=== PATIENT | female | born 1975 | race African-American/Black ===

== ENCOUNTER 2017-02-18 11:18 | Day surgery (SDC) | payer OTHER ==
[2017-02-17 17:17] VITALS: BMI 24.4
[2017-02-18] MEDS ORDERED: LIDOCAINE 1%/EPI 1:100000 (20 ML MULTI DOSE VIAL) ONE (13:16)
[2017-02-18] MEDS ORDERED: MIDAZOLAM HCL 2 MG/2 ML SINGLE DOSE VIAL ONE (13:29)
[2017-02-18] MEDS ORDERED: PROPOFOL 20 ML ONE (13:29)
--- NOTE | 2017-02-18 13:34 | OP ---
Operative Note - Note: Operative Date: 02/18/17 Pre-Operative Diagnosis: Hypermastia Operation: Bilateral breast reduction Findings: Large pendulous breasts Implants: none Post-Operative Diagnosis: Same as Pre-op Surgeon: Moisés Acevedo Cloth Beamer: Ronel Jara Anesthesia: MAC Specimens Removed: Breast tissue Estimated Blood Loss (mls): 100 Drains & Tubes with Location: none Operative Report Dictated: Yes
[2017-02-18] MEDS ORDERED: ceFAZolin SODIUM 1 GM VIAL IVPB ONE (13:45)
[2017-02-18] MEDS ORDERED: SEVOFLURANE 250 ML BTL ONE (13:46)
[2017-02-18] MEDS ORDERED: ceFAZolin SODIUM 1 GM VIAL ONE (13:48)
[2017-02-18] MEDS ORDERED: LIDOCAINE 1%/EPI 1:100000 (50 ML MULTI DOSE VIAL) INF ONE (13:59)
[2017-02-18] MEDS ORDERED: DEXAMETHASONE SOD PHOSPHATE 4 MG/1 ML VIAL ONE (14:15)
[2017-02-18] MEDS ORDERED: oxyCODONE HCL 5 MG TABLET PO PRN (15:36)
[2017-02-18] MEDS ORDERED: ONDANSETRON 4 MG/2 ML VIAL IVPUSH PRN (15:36)
[2017-02-18] MEDS ORDERED: ACETAMINOPHEN 1000 MG/100 ML VIAL (NON FORMULARY) IVPB PRN (15:38)
[2017-02-18] MEDS ORDERED: LACTATED RINGERS SOLUTION 1,000 ML IV SCH (15:45)
--- NOTE | 2017-02-18 17:50 | OP ---
DATE OF OPERATION: 02/18/2017 SURGEON: Charles Acevedo MD GEOMAGNETICIAN SURGEON: HETAL Tejeda PREOPERATIVE DIAGNOSIS: Symptomatic macromastia. POSTOPERATIVE DIAGNOSIS: Symptomatic macromastia. OPERATIVE PROCEDURE: Bilateral reduction mammoplasty. OPERATIVE INDICATION: The patient is a young woman who complains of symptomatic macromastia with inability to do her daily activities. The risks and benefits of surgical versus nonsurgical alternatives as well as the material complications, including the scars which are related to Ortiz pattern reduction mammoplasty were described to the patient on multiple occasions preoperatively. She was marked today in the holding area preoperatively, with outline of the incisions, the pattern, and the discussion of the procedure. All questions were asked and answered. OPERATIVE PROCEDURE IN DETAIL: The patient was taken to the operating room, and after induction of general anesthesia in the supine position, both arms were extended and padded and Venodyne boots were placed. The entire chest wall was prepped with ChloraPrep solution over its entire extent and then sterile drapes were placed in the usual fashion. After timeout and intravenous antibiotics which were given, attention was turned to the markings. These were confirmed and just redrawn. At this point, 1% local lidocaine anesthesia was injected into the proposed incision lines for hemostasis, and a number 42 nipple-areolar cutter was circumscribed around the right nipple-areolar complex. The nipple complexes on both sides were medialized and abnormal. These were planned to bring them back into the midline. An incision was made according to the pattern down through the skin and subcutaneous tissue, de-epithelialized for an inferior glandulo-pedicle technique. The pedicle was then fashioned in the central portion of the breast and attached to the chest wall. Blocks of tissue were then removed from the lateral, superior, and medial portions of the breast and were sent for pathologic diagnosis. The right breast weighed 357 g of tissue. Copious irrigation and hemostasis was carried out. A Prem 15-mm drain was brought out through a separate stab wound laterally, as the patient was allergic to LATEX. At this point, the wounds were tacked together using 2-0 Vicryl sutures and the pedicle was centralized with stabilizing sutures. Attention was then turned to the opposite left breast. The exact same procedure was carried out asymmetrically on the left side because of the large difference in volumes. This side had the same procedure but removed 482 g of tissue on the left side. Good shape and contour was seen after tacking the same procedures on both sides in the sitting position, good symmetry was seen, and then wounds were closed in layers using 2-0 Vicryl sutures on the deep tissue, 3-0 Biosyn in a subcutaneous fashion, and 3-0 V-Loc suture in running subcuticular fashion around the areolar complex and on all Ortiz pattern wounds. Dermabond and Steri-Strip dressing was placed. She tolerated the procedure well. The color of the nipple-areolar complex at the end of the procedure was viable and good punctate bleeding was seen from the edges upon suturing. She tolerated the procedure well. She was awakened, extubated, and transferred to the recovery room in [facility]. She tolerated the procedure well. CHARLES ACEVEDO M.D. [id number]
[2017-02-18] MEDS ORDERED: ACETAMINOPHEN INJECTION 100 ML IVPB ONE (18:23)
[2017-02-18] MEDS ORDERED: oxyCODONE HCL 5 MG TABLET ONE (19:01)
[2017-02-18 19:35] VITALS: TEMP 98.5
[2017-02-18 20:36] VITALS: BP 101/63; PULSE 72
--- NOTE | 2017-02-22 16:42 | PATH ---
Surgical Pathology Report Patient Name: ERWIN BEARD [facility]. Rec. #: [id number] /Age/Gender: 1975 (Age: 41) / F Account: [id number] Location: [facility] SURGICAL Taken: 02/18/2017 Received: 02/19/2017 Reported: 02/22/2017 Physicians: Moisés Acevedo Specimen(s) Received A: RIGHT BREAST B: LEFT BREAST Clinical History Hypermastia bilateral breasts Final Diagnosis A. Breast, right, excision: Benign breast tissue with stromal fibrosis. Skin without Significant pathologic Findings. B. Breast, LEFT, excision: Benign breast tissue with stromal fibrosis, FEW MICROCYSTS AND APOCRINE METAPLASIA. Skin without Significant pathologic Findings. Electronically Signed Jessica Marcelino M.D. Gross Description A. Received in formalin labeled "right breast," is a 364 g, 16.5 x 8.0 x 5.3 cm aggregate of multiple irregular, unoriented portions of fibroadipose tissue and allen, unremarkable skin. Sectioning reveals multiple foci of white fibrous tissue. [employer] sections are submitted in 5 cassettes. B. Received in formalin labeled "left breast," is a 496 g, 19.0 x 12.5 x 5.2 cm aggregate of multiple, irregular, unoriented portions of fibroadipose tissue and allen, unremarkable skin. Sectioning reveals multiple foci of white fibrous tissue. [employer] sections are submitted in 5 cassettes. 02/19/201702/19/2017
== END 2017-02-18 20:37 | disposition home or self-care (01) ==
LOC: JASU-SURG 11:18
PROVIDERS: ATTEND Plastic Surgery
PROC: 0HBV0ZZ Excision of Bilateral Breast, Open Approach (ICD-10-PCS; principal; 2017-02-18 13:00)
DX: N62 Hypertrophy of breast (principal); I10 Essential (primary) hypertension
CPT/HCPCS: 88305-TC